=== PATIENT | female | born 1995 | race American Indian/Alaskan Native ===

== ENCOUNTER 2017-08-22 23:40 | Emergency (ER) | payer OTHER ==
[2017-08-22 23:41] VITALS: BMI 32.0
[2017-08-22 23:57] VITALS: RESP 18; TEMP 98.3; O2SAT 100
--- NOTE | 2017-08-23 00:15 | ED PDOC ---
Arrival/HPI - General Chief Complaint: Abdominal Pain Time Seen by Provider: 08/22/17 23:55 Historian: Patient - History of Present Illness Narrative History of Present Illness (Text): 08/23/17 00:15 Alyssa Renteria is a 21 year old female who presents to the Emergency department complaining of nausea and vomiting. Patient states she has been experiencing intermittent nausea and vomiting with associated generalized abdominal cramping for 1 week. Patient states she has experienced similar symptoms in the past. Patient denies any fever, chills, diarrhea, changes in diet, urinary symptoms, back pain, headache, or any other complaints. Time/Duration: 1 week Symptom Onset: Gradual Symptom Course: Unchanged, Intermittent Activities at Onset: Light Context: Home Past Medical History - Provider Review Nursing Documentation Reviewed: Yes - Infectious Disease Hx of Infectious Diseases: None - Cardiac Hx Cardiac Disorders: No - Pulmonary Hx Respiratory Disorders: Yes Hx Asthma: Yes - Neurological Hx Neurological Disorder: No - HEENT Hx HEENT Disorder: No - Renal Hx Renal Disorder: No - Endocrine/Metabolic Hx Endocrine Disorders: No - Hematological/Oncological Hx Blood Disorders: No - Integumentary Hx Dermatological Disorder: Yes Hx Eczema: Yes - Musculoskeletal/Rheumatological Hx Musculoskeletal Disorders: No - Gastrointestinal Hx Gastrointestinal Disorders: No - Genitourinary/Gynecological Hx Genitourinary Disorders: No - Psychiatric Hx Psychophysiologic Disorder: No Hx Substance Use: No - Anesthesia Hx Anesthesia: No Hx Anesthesia Reactions: No Hx Malignant Hyperthermia: No Family/Social History - Physician Review Nursing Documentation Reviewed: Yes Family/Social History: Unknown Family HX Smoking Status: Never Smoked Hx Alcohol Use: Yes Frequency of alcohol use: Socially Hx Substance Use: No Allergies/Home Meds Allergies/Adverse Reactions: Allergies No Known Allergies Allergy (Verified 08/22/17 23:53) Review of Systems - Physician Review All systems were reviewed & negative as marked: Yes - Review of Systems Constitutional: Normal. absent: Fevers Eyes: Normal ENT: Normal Respiratory: Normal. absent: SOB, Cough Cardiovascular: Normal. absent: Chest Pain Gastrointestinal: Abdominal Pain, Nausea, Vomiting. absent: Diarrhea Genitourinary Female: Normal. absent: Dysuria, Frequency, Hematuria, Urine Output Changes Musculoskeletal: Normal. absent: Back Pain, Neck Pain Skin: Normal. absent: Rash Neurological: Normal. absent: Headache, Dizziness Endocrine: Normal Hemo/Lymphatic: Normal Psychiatric: Normal Physical Exam Vital Signs Reviewed: Yes Vital Signs Temp Pulse Resp BP Pulse Ox 08/22/17 23:54 98.3 F 67 18 123/84 100 Temperature: Afebrile Blood Pressure: Normal Pulse: Regular Respiratory Rate: Normal Appearance: Positive for: Well-Appearing, Non-Toxic, Comfortable Pain Distress: None Mental Status: Positive for: Alert and Oriented X 3 - Systems Exam Head: Present: Atraumatic, Normocephalic Pupils: Present: PERRL Extroacular Muscles: Present: EOMI Conjunctiva: Present: Normal Mouth: Present: Moist Mucous Membranes Neck: Present: Normal Range of Motion Respiratory/Chest: Present: Clear to Auscultation, Good Air Exchange. No: Respiratory Distress, Accessory Muscle Use Cardiovascular: Present: Regular Rate and Rhythm, Normal S1, S2. No: Murmurs Abdomen: No: Tenderness, Distention, Peritoneal Signs Back: Present: Normal Inspection Upper Extremity: Present: Normal Inspection. No: Cyanosis, Edema Lower Extremity: Present: Normal Inspection. No: Edema Neurological: Present: GCS=15, CN II-XII Intact, Speech Normal Skin: Present: Warm, Dry, Normal Color. No: Rashes Psychiatric: Present: Alert, Oriented x 3, Normal Insight, Normal Concentration Medical Decision Making ED Course and Treatment: 08/23/17 00:15 Impression: 21 year old female complaining of intermittent nausea, vomiting, and generalized abdominal pain x1 week. Differential Diagnosis included but are not limited to: Plan: -- Labs, lipase -- Urinalysis -- IV fluids -- Zofran -- Pepcid -- Reassess and disposition Progress Notes: - Lab Interpretations Lab Results: 08/23/17 00:20 08/23/17 00:20 Lab Results 08/23/17 00:20: WBC 7.6, RBC 4.09, Hgb 12.2, Hct 35.7 L, MCV 87.3, MCH 29.8, MCHC 34.2, RDW 11.8, Plt Count 269, MPV 9.7 08/23/17 00:20: Sodium 139, Potassium 3.7, Chloride 106, Carbon Dioxide 22, Anion Gap 14, BUN 9, Creatinine 0.7, Est GFR ( Amer) > 60, Est GFR (Non- Af Amer) > 60, Random Glucose 88, Calcium 9.0, Total Bilirubin 0.2, AST 21, ALT 24, Alkaline Phosphatase 41, Total Protein 6.8, Albumin 4.0, Globulin 2.8, Albumin/Globulin Ratio 1.4, Lipase 101 08/23/17 00:20: Urine Color Yellow, Urine Appearance Clear, Urine pH 6.0, Ur Specific [place] >= 1.030, Urine Protein Negative, Urine Glucose (UA) Negative, Urine Ketones Negative, Urine Blood Negative, Urine Nitrate Negative, Urine Bilirubin Negative, Urine Urobilinogen 0.2, Ur Leukocyte Esterase Negative - Medication Orders Current Medication Orders: Discontinued Medications Famotidine (Pepcid) 20 mg IVP STAT STA Stop: 08/23/17 00:17 Last Admin: 08/23/17 00:50 Dose: 20 mg IVP Administration Document 08/23/17 00:50 JOL (Rec: 08/23/17 00:50 [id number] Charges for Administration # of IVP Administrations 1 Sodium Chloride (Sodium Chloride 0.9%) 1,000 mls @ 999 mls/hr IV .Q1H1M STA Stop: 08/23/17 01:16 Last Admin: 08/23/17 00:25 Dose: 999 mls/hr eMAR Start Stop Document 08/23/17 00:25 JOL (Rec: 08/23/17 00:50 [id number] Intravenous Solution Start Date 08/23/17 Start Time 00:25 End Date 08/23/17 End time 01:26 Total Infusion Time 61 Ondansetron HCl (Zofran Inj) 4 mg IVP ONCE ONE Stop: 08/23/17 00:17 Last Admin: 08/23/17 00:50 Dose: 4 mg IVP Administration Document 08/23/17 00:50 JOL (Rec: 08/23/17 00:50 [id number] Charges for Administration # of IVP Administrations 1 - Scribe Statement The provider has reviewed the documentation as recorded by the Laurie Dean Provider Scribe Attestation: All medical record entries made by the Scribe were at my direction and personally dictated by me. I have reviewed the chart and agree that the record accurately reflects my personal performance of the history, physical exam, medical decision making, and the department course for this patient. I have also personally directed, reviewed, and agree with the discharge instructions and disposition. Disposition/Present on Arrival - Present on Arrival Any Indicators Present on Arrival: No History of DVT/PE: No History of Uncontrolled Diabetes: No Urinary Catheter: No History of Decub. Ulcer: No History Surgical Site Infection Following: None - Disposition Have Diagnosis and Disposition been Completed?: Yes Diagnosis: Gastritis Disposition: HOME/ ROUTINE Disposition Time: 02:28 Patient Plan: Discharge Condition: GOOD Additional Instructions: Take meds as prescribed/advance diet slowly as tolerated/follow up with your doctor this week Prescriptions: Ondansetron [Zofran Odt] 4 mg PO Q6 #9 odt Forms: [employer] ([place]i)
[2017-08-23] MEDS ORDERED: Sodium Chloride 0.9% 1,000 ML IV STA (00:16)
[2017-08-23 00:31] LABS: HEMOGLOBIN 12.2 g/dL (12.0-16.0); MEAN CELL VOLUME 87.3 fl (80.0-105.0); MEAN CORPUSCULAR HEMOGLOBIN 29.8 pg (25.0-35.0); MEAN CORPUSCULAR HGB CONC 34.2 g/dl (31.0-37.0); MEAN PLATELET VOLUME 9.7 fl (7.0-11.0); RBC 4.09 10^6/uL (3.5-6.1); RED CELL DISTRIBUTION WIDTH 11.8 % (11.5-14.5); WHITE BLOOD COUNT 7.6 10^3/ul (4.5-11.0)
[2017-08-23 00:35] LABS: URINE APPEARANCE CLEAR (CLEAR); URINE BILIRUBIN NEGATIVE (NEGATIVE); URINE BLOOD NEGATIVE (NEGATIVE); URINE COLOR YELLOW (YELLOW); URINE GLUCOSE (UA) NEGATIVE (NEGATIVE); URINE LEUKOCYTE ESTERASE NEGATIVE Leu/uL (NEGATIVE); URINE PROTEIN NEGATIVE mg/dL (<30 mg/dL); URINE UROBILINOGEN 0.2 E.U./dL (<1 E.U./dL)
[2017-08-23 00:45] LABS: ALB/GLOB RATIO 1.4 (1.1-1.8); ALT/SGPT 24 U/L (7-56); AST/SGOT 21 U/L (14-36); BLOOD UREA NITROGEN 9 mg/dL (7-21); GFR AFRICAN-AMERICAN > 60; GFR NON-AFRICAN AMERICAN > 60; LIPASE 101 U/L (23-300)
[2017-08-23 03:37] VITALS: BP 118/72; PULSE 71
== END 2017-08-23 02:50 | disposition home or self-care (01) ==
LOC: ED 23:40
DX: K29.70 Gastritis, unspecified, without bleeding (principal)
CPT/HCPCS: 80053; 81003; 83690; 85027; 96361; 96374; 96375; 99284; J2405; J7040

== ENCOUNTER 2018-05-01 17:23 | Emergency (ER) | payer OTHER ==
[2018-05-01 17:33] VITALS: BMI 32.5
[2018-05-01 17:37] VITALS: RESP 18
--- NOTE | 2018-05-01 18:02 | ED PDOC ---
Arrival/HPI - General Chief Complaint: Female Genitourinary Historian: Patient - History of Present Illness Narrative History of Present Illness (Text): 05/01/18 17:50 22 year old female, whose past medical history includes kidney infection, who presents to the Emergency department complaining of left-sided back pain radiating to abdomen since last week, worse today. Patient reports she has had these symptoms in the past. Patient states she sometimes has chest pain and shortness of breath, which is not different from "her baseline." Patient denies any dysuria, hematuria, urine output changes, vaginal discharge, vaginal bleeding, fevers, chills, vomiting, or any other complaints. PMD: Justino Mota Time/Duration: 1 week (pt notes onset as last week, worse today) Symptom Onset: Sudden Symptom Course: Unchanged Activities at Onset: Light Past Medical History - Provider Review Nursing Documentation Reviewed: Yes - Infectious Disease Hx of Infectious Diseases: None - Cardiac Hx Cardiac Disorders: No - Pulmonary Hx Respiratory Disorders: Yes Hx Bronchitis: Yes - Neurological Hx Neurological Disorder: No - HEENT Hx HEENT Disorder: No - Renal Hx Renal Disorder: No - Endocrine/Metabolic Hx Endocrine Disorders: No - Hematological/Oncological Hx Blood Disorders: No - Integumentary Hx Dermatological Disorder: Yes Hx Eczema: Yes - Musculoskeletal/Rheumatological Hx Musculoskeletal Disorders: No - Gastrointestinal Hx Gastrointestinal Disorders: No - Genitourinary/Gynecological Hx Genitourinary Disorders: No - Psychiatric Hx Psychophysiologic Disorder: No Hx Substance Use: No - Anesthesia Hx Anesthesia: No Hx Anesthesia Reactions: No Hx Malignant Hyperthermia: No Family/Social History - Physician Review Nursing Documentation Reviewed: Yes Family/Social History: No Known Family HX Smoking Status: Current Some Days Smoker Hx Alcohol Use: Yes Frequency of alcohol use: Socially Hx Substance Use: No Allergies/Home Meds Allergies/Adverse Reactions: Allergies No Known Allergies Allergy (Verified 08/22/17 23:53) Review of Systems - Physician Review All systems were reviewed & negative as marked: Yes - Review of Systems Constitutional: Normal. absent: Fevers, Night Sweats Gastrointestinal: Abdominal Pain (Pt notes left-sided abdominal pain ). absent: Normal, Vomiting Genitourinary Female: absent: Dysuria, Hematuria, Urine Output Changes, Vaginal Bleeding, Vaginal Discharge Musculoskeletal: Back Pain (Pt notes left-sided back pain since last week, worse today ). absent: Normal Physical Exam Vital Signs Reviewed: Yes Vital Signs Temp Pulse Resp BP Pulse Ox 05/01/18 17:23 99.8 F H 67 18 106/66 98 Temperature: Afebrile Blood Pressure: Normal Pulse: Regular Respiratory Rate: Normal Appearance: Positive for: Well-Appearing, Non-Toxic Pain Distress: Mild Mental Status: Positive for: Alert and Oriented X 3 - Systems Exam Head: Present: Atraumatic, Normocephalic Pupils: Present: PERRL Extroacular Muscles: Present: EOMI Conjunctiva: Present: Normal Mouth: Present: Moist Mucous Membranes Neck: Present: Normal Range of Motion Respiratory/Chest: Present: Clear to Auscultation, Good Air Exchange. No: Respiratory Distress, Accessory Muscle Use Cardiovascular: Present: Regular Rate and Rhythm, Normal S1, S2. No: Murmurs Abdomen: Present: Tenderness (LLQ tenderness) Back: Present: CVA Tenderness (left-sided CVA tenderness). No: Normal Inspection Upper Extremity: Present: Normal Inspection. No: Cyanosis, Edema Lower Extremity: Present: Normal Inspection. No: Edema Neurological: Present: GCS=15, CN II-XII Intact, Speech Normal Skin: Present: Warm, Dry, Normal Color. No: Rashes Psychiatric: Present: Alert, Oriented x 3, Normal Insight, Normal Concentration Medical Decision Making ED Course and Treatment: 05/01/18 17:50 Impression: 22 year old female who presents to the Emergency department complaining of left- sided back pain radiating to abdomen since last week, worse today. Differential Diagnosis included but are not limited to: UTI Renal Colic Pyelonephritis Plan: -- Toradol -- POC Urine Test -- Urinalysis -- Reassess and disposition Prior Visits: Notes and results from previous visits were reviewed. Patient was last seen in the emergency department on 08/23/17 for nausea and vomiting. Patient was discharged home in good condition, prescribed Zofran 4mg PO, and directed to follow up with PMD. Progress Notes: 05/01/18 18:00 UA shows no evidence of bacteria within urine. Discussion of result with patient who demonstrates understanding to continue adequate fluid volumes and to strain her urine at home. Work note given. She is stable to discharge. - Lab Interpretations Lab Results: Lab Results 05/01/18 18:34: Urine Color Light yellow, Urine Appearance Clear, Urine pH 6.5, Ur Specific [place] 1.025, Urine Protein Negative, Urine Glucose (UA) Negative, Urine Ketones Negative, Urine Blood Trace-lysed H, Urine Nitrate Negative, Urine Bilirubin Negative, Urine Urobilinogen 0.2, Ur Leukocyte Esterase Negative, Urine RBC 0 - 2, Urine WBC 0 - 2, Ur Epithelial Cells 3 - 4, Urine Bacteria Small, Urine Other Mucus I have reviewed the lab results: Yes - Scribe Statement The provider has reviewed the documentation as recorded by the Scribe Osiris Coyne All medical record entries made by the Scribe were at my direction and personally dictated by me. I have reviewed the chart and agree that the record accurately reflects my personal performance of the history, physical exam, medical decision making, and the department course for this patient. I have also personally directed, reviewed, and agree with the discharge instructions and disposition. Disposition/Present on Arrival - Present on Arrival Any Indicators Present on Arrival: No History of DVT/PE: No History of Uncontrolled Diabetes: No Urinary Catheter: No History of Decub. Ulcer: No History Surgical Site Infection Following: None - Disposition Have Diagnosis and Disposition been Completed?: Yes Diagnosis: Renal colic on left side Disposition: HOME/ ROUTINE Disposition Time: 19:45 Patient Plan: Discharge Condition: IMPROVED Discharge Instructions (ExitCare): Renal Colic (DC) Print Language: SPANISH Additional Instructions: All medical record entries made by the Scribe were at my direction and personally dictated by me. I have reviewed the chart and agree that the record accurately reflects my personal performance of the history, physical exam, medical decision making, and the department course for this patient. I have also personally directed, reviewed, and agree with the discharge instructions and disposition. Please follow up with your PCP in 1-2 days Drink lots of fluids and take your Motrin every SIX hours WITH FOOD as needed for pain Prescriptions: RX: Ibuprofen [Motrin Tab] 600 mg PO Q6H PRN 6 Days #24 tab PRN Reason: Muscle Spasm Referrals: Justino Cristina MD [Primary Care Provider] - Follow up with primary Forms: [employer] (Lux[place]ish), WORK NOTE
[2018-05-01 19:06] LABS: PH,URINE 6.5 (4.7-8.0); URINE BILIRUBIN NEGATIVE (NEGATIVE); URINE BLOOD TRACE-LYSED (NEGATIVE); URINE GLUCOSE (UA) NEGATIVE (NEGATIVE); URINE LEUKOCYTE ESTERASE NEGATIVE Leu/uL (NEGATIVE); URINE PROTEIN NEGATIVE mg/dL (<30 mg/dL); URINE UROBILINOGEN 0.2 E.U./dL (<1 E.U./dL)
[2018-05-01 19:13] LABS: URINE APPEARANCE CLEAR (CLEAR); URINE COLOR LIGHT YELLOW (YELLOW)
[2018-05-01 19:58] LABS: URINE RBC 0 - 2 /hpf (0-2); URINE WBC 0 - 2 /hpf (0-6)
[2018-05-01 19:59] LABS: URINE BACTERIA SMALL (NEG)
[2018-05-01 20:51] VITALS: BP 119/68; PULSE 78; TEMP 98.1; O2SAT 99
== END 2018-05-01 20:50 | disposition home or self-care (01) ==
LOC: ED 17:23
DX: N23 Unspecified renal colic (principal)
CPT/HCPCS: 81001; 96372; 99283; J1885